=== PATIENT | male | born 1945 | race Caucasian/White ===

== ENCOUNTER 2020-06-16 12:22 | Emergency (ER) | payer MEDICARE, SELFPAY ==
[2020-06-16 12:29] VITALS: BP 146/77; PULSE 71; RESP 16; TEMP 36.3; O2SAT 100
--- NOTE | 2020-06-16 12:57 | ED.EAR ---
HPI - Ear Problem General Chief complaint: Skin/Abscess/Foreign Body Stated complaint: pos lice/scabies Source: patient and RN notes reviewed Limitations: no limitations History of Present Illness HPI Narrative: The patient, previously mostly healthy with h/o mood disorder, presents with skin eruption and pruritus. Patient states he has about 1/2-week history of itchy the scalp-- especially at his ears bilaterally. 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 He's concerned he might have lice, but he first had bilateral ear itching. Symptoms are mild, worse with scratching. No visible nits, fever, discharge/streaking, prior rashes/other eczema Related Data Allergies Allergy/AdvReac Type Severity Reaction Status Date / Time No Known Allergies Allergy Verified 06/16/20 12:37 Review of Systems Review of Systems: Narrative: The patient has been informed that they may have pre-hypertension or Hypertension based on a BP reading in the department. I recommend that the patient call the primary care provider listed on their discharge instructions or a physician of their choice this week to arrange follow up for further evaluation of possible pre-hypertension or Hypertension General/Constitutional: No weight loss,fever Eyes: N0: Redness,discharge Ears/Nose/Throat: No: Epistaxis,ear discharge Respiratory: Denies: Hemoptysis Gastrointestinal: No Vomiting, Bleeding-rectal Skin: No Lumps, REPORTS eruption Neurologic: No Focal Weakness,Sz Hematologic: Denies: Petechiae/Purpura Psychiatric: No: Suicida ideationl All Other Systems: Reviewed and Negative PMF Past Medical History Medical History (Updated 06/19/20 @ 11:38 by David Emery MD) Hearing difficulty Lymphoma (~07/02/18) Polio (~1950) Primary squamous cell carcinoma of throat Wears glasses Social History Social History Smoking status: Former smoker Tobacco type: cigarettes Alcohol intake: never Comments At time of signature, agree with nursing past medical, surgical, social and family history. There is no relevant family history pertinent to the presenting complaint Exam Narrative: Exam Narrative: Appearance: Well-nourished Normocephalic, Conjunctiva clear Ear: [place]/slightly inflamed apices external ears Nose: Normal nose, Nare clear Mouth/Throat: Normal appearing Neck Exam: Supple Respiratory: Airway patent, No respiratory distress Musculoskeletal: Moves all extremities, Non tender Skin: Warm, Dry, Balding no nits seen [see above, also] Neurological: A&O x3, Normal affect Course Vital Signs Vital signs: Vital Signs Temperature 97.3 F L 06/16/20 12:29 Pulse Rate 71 06/16/20 12:29 Respiratory Rate 16 06/16/20 12:29 Blood Pressure 146/77 H 06/16/20 12:29 Pulse Oximetry 100 06/16/20 12:29 Temperature 97.3 F L 06/16/20 12:29 Pulse Rate 71 06/16/20 12:29 Respiratory Rate 16 06/16/20 12:29 Blood Pressure 146/77 H 06/16/20 12:29 Pulse Oximetry 100 06/16/20 12:29 Medical Decision Making Vital Signs Vital Signs: Vital Signs Temperature 97.3 F L 06/16/20 12:29 Pulse Rate 71 06/16/20 12:29 Respiratory Rate 16 06/16/20 12:29 Blood Pressure 146/77 H 06/16/20 12:29 Pulse Oximetry 100 06/16/20 12:29 Temperature 97.3 F L 06/16/20 12:29 Pulse Rate 71 06/16/20 12:29 Respiratory Rate 16 06/16/20 12:29 Blood Pressure 146/77 H 06/16/20 12:29 Pulse Oximetry 100 06/16/20 12:29 Discharge Plan Discharge Clinical Impression: Dermatitis of external ear, Pruritic condition Patient Disposition: Home, Self-Care Condition: Stable Additional Instructions: You may also use OTC preparations like S[place] shampoo on your ears, and 1% hydrocortisone cream Prescriptions: New RID Lice Killing 0.33-4 % shampoo 1 applic TOPICAL ONCE Qty: 59
== END 2020-06-16 13:08 | disposition home or self-care (01) ==
PROVIDERS: Emergency Provider Emergency Medicine; PCP Family Medicine
DX: L30.9 Dermatitis, unspecified (principal); L29.9 Pruritus, unspecified; Z87.891 Personal history of nicotine dependence; Z85.858 Personal history of malignant neoplasm of other endocrine glands; Z92.21 Personal history of antineoplastic chemotherapy
CPT/HCPCS: 99213; G0463

== ENCOUNTER 2021-12-27 15:14 | Emergency (ER) | payer MEDICARE, SELFPAY ==
[2021-12-27 15:25] VITALS: BP 175/93; PULSE 88; RESP 16; TEMP 36.7; O2SAT 99
--- NOTE | 2021-12-27 15:45 | ED.WOUNDLAC ---
HPI - Wound/Laceration General Chief Complaint: Wound/Laceration Stated Complaint: L THUMB LACERATION Time Seen by Provider: 12/27/21 15:40 Source: patient, RN notes reviewed and old records reviewed Mode of arrival: ambulatory Limitations: no limitations History of Present Illness HPI narrative: 76 year old male who presents to [facility] with complaints of laceration to the outer aspect of left dorsal thumb which occurred at home when he was using a boxing instructor to cut a box. Patient has some active bleeding noted at site of laceration, he has applied a pressure dressing to site. Patient has no damage to nail bed or any foreign body present. Patient states that his Tetanus shot is not up to date thinks it has been between 9 to 10 years since he had his last tetanus. 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 Onset (ago): hour(s) (1) Location: other (left thumb laceration) Place: home Patient tetanus UTD: No Context: accidental Treatments prior to arrival: bandage Related Data Allergies Allergy/AdvReac Type Severity Reaction Status Date / Time No Known Allergies Allergy Verified 09/09/21 14:01 Review of Systems Review of Systems: CONSTITUTIONAL: Denies fever, chills, or sweats. EYES: Denies visual changes, redness, or discharge. ENT: Denies rhinorrhea, congestion, sore throat, or otalgia. CARDIOVASCULAR: Denies chest pain, palpitations, or edema. RESPIRATORY: Denies cough or dyspnea. GASTROINTESTINAL: Denies abdominal pain, nausea, vomiting, or diarrhea. GENITOURINARY: Denies dysuria or hematuria. SKIN: Denies rash or itching, positive for laceration to the outer dorsal area of left thumb MUSCULOSKELETAL: Denies back pain, joint pain, or myalgia. NEUROLOGIC: Denies headache, numbness, or weakness. PSYCHIATRIC: positive for anxiety or depression. All systems reviewed & are unremarkable except as noted in HPI and below PMFSH Past Medical History Medical History (Updated 12/27/21 @ 16:58 by Imelda Ardon NP) Hearing difficulty Lymphoma (~07/02/18) Polio (~1950) Primary squamous cell carcinoma of throat Wears glasses Surgical History Surgical History (Updated 12/27/21 @ 16:59 by Imelda Ardon NP) Hx of tonsillectomy left neck lymph node dissection Family History Family History Father Family history of mental disorder Sibling Hypertension Mother Family history of cardiovascular disease Social History Social History (Updated 12/27/21 @ 16:19 by Imelda Ardon NP) Smoking status: Former smoker Tobacco type: cigarettes Additional smoking assessment comments: quit 25 years ago Alcohol intake: never Substance use type: does not use Gender identity (if verbalized by the patient): Male Comments At time of signature, agree with nursing past medical, surgical, social and family history. There is no relevant family history pertinent to the presenting complaint Exam Narrative: GENERAL: Well-appearing, well-nourished, and in no acute distress. HEAD: Normocephalic, atraumatic. EYES: PERRLA and EOMI. ENT: Nares clear, no rhinorrhea or epistaxis. Mucous membranes moist.TM's normal with good light reflex throat pink with no lesions or exudates no tonsils present. NECK: Supple. no lymphadenopathy CHEST: Clear to auscultation. No respiratory distress. HEART: Regular rate and rhythm. No murmur heard. Normal peripheral pulses. ABDOMEN: Soft, nontender, nondistended, normal active bowel sounds. EXTREMITIES: Normal range of motion. No edema. SKIN: Warm, dry, no rash. 2.5 cm laceration to the outer aspect of left thumb requiring suture repair NEURO: No focal deficits. Alert and oriented x3. Course Course Level of Care: Express Care Visit Vital Signs Vital signs: Vital Signs Temperature 36.7 C 12/27/21 15:25 Pulse Rate 88 12/27/21 15:25 Respiratory Rate 16 12/27/21 15:25 Blood Pressure 175/93 H 12/27/21
[2021-12-27] MEDS: TETANUS,DIPHTHERIA,AC PERTUSSIS ADULT (0.5 ML) BOOSTRIX IM (16:19)
== END 2021-12-27 16:29 | disposition home or self-care (01) ==
PROVIDERS: Emergency Provider Registered Nurse; PCP Family Medicine
DX: S61.012A Laceration without foreign body of left thumb without damage to nail, initial encounter (principal); W26.8XXA Contact with other sharp object(s), not elsewhere classified, initial encounter; Z23 Encounter for immunization; Z85.21 Personal history of malignant neoplasm of larynx; Z85.72 Personal history of non-Hodgkin lymphomas
CPT/HCPCS: 12001; 90471; 90715; 99213; G0463

== ENCOUNTER 2023-01-22 00:43 | Day surgery (SDC) | payer MEDICARE, SELFPAY ==
--- NOTE | 2023-01-16 14:59 | PC.NURSE ---
Report to the Outpatient Waiting Room, entrance under the green pavilion located off [facility], at time __1100 on date _01/22/23 . Planned Procedure Time: ___1200 . Time changes happen often and if your time is changed the preop area will call you the afternoon before. - You and your visitor will be asked to self-screen and do not enter if you have any COVID symptoms. - A mask is optional within the hospital at this time. Patients may have clear liquids (water, carbonated beverages, clear teas, apple juice) until 3 hours prior to surgery with a maximum of 20 ounces. - No food from midnight until time of surgery - Infants may have breast milk until 4 hours before surgery, infant formula 6 hours prior to surgery. - Children will be allowed to drink immediately following surgery. If applicable, please bring a bottle or sippy cup to assist with drinking. Juice, water, soda, and popsicles are readily available. For infants on formula, please bring formula the day of surgery. Pacifiers are allowed. LIGHT BREAKFAST Take the following medications with a SIP of water the morning of surgery: ___ALL ROUTINE MORNING MEDS DO NOT STOP ANY OF YOUR OTHER PRESCRIPTION MEDICATIONS PRIOR TO SURGERY ?EXCEPT THE FOLLOWING Medications to discontinue per physician ASPIRIN 3 DAYS PRE OP PER DR LEVY. LAST DOSE 01/18/23 Please no make-up, nail romansh, hairspray, perfume, deodorant, or body powder the day of surgery. No jewelry (including any body piercings) or valuables the day of surgery, leave them at home. Please take a shower or bath the night before, or the morning of, surgery with an antibacterial soap. Wear comfortable, loose fitting clothing. Children are encouraged to wear pajamas. - Jewelry must be removed prior to entering the operating room. Rings and piercings that are not removed may be cut off. - The hospital will not accept responsibility for valuables. - Please leave all valuables, including medications, at home the day of surgery. If you are going home after surgery, a licensed grab driver must drive you home. - NO public transportation without another adult if you receive anesthesia. - We recommend that an adult stay with you for 24 hours following discharge. - We also recommend that you do not drive, make important decision, drink alcoholic beverages, or take any drugs that were not prescribed by your health care provider for at least 24 hours after your discharge time. For Pediatric surgeries, we recommend two adults accompany the child home. Follow any additional instructions given to you from your surgeon. If you or anyone in your household have experienced Covid symptoms in the past week, please notify your surgeon or the nurse liaison at the phone number below for possible testing. Telephone instructions given to ___PATIENT and asked if any additional questions and then verbalized understanding. Patient advised to call surgeon office or pre surgery nurse liaison [phone] if any additional questions.
[2023-01-16 15:01] VITALS: BMI 25.8
[2023-01-22] VITALS (12 sets, daily range): BP systolic 142–208; BP diastolic 77–96; PULSE 70–80; RESP 16–18; TEMP 36.7; O2SAT 98–100
--- NOTE | 2023-01-22 07:12 | WPDHPUPDATE1 ---
History and Physical Update Update Date/Time: 01/22/23 07:12 History and Physical has been reviewed, including an updated exam of the patient. There are NO changes in the patient's condition. Risks, benefits, and alternatives have been discussed and questions answered. Patient agrees to proceed with procedure.
--- NOTE | 2023-01-22 11:26 | SUR.PREOP ---
PATIENT UPDATED ON SURGERY DELAY
[2023-01-22] MEDS: LIDO 1%/EPINEPHRINE 1:100,000 20 ML VIAL 4 ML INFILTRATE (14:18)
--- NOTE | 2023-01-22 19:26 | W.PM.PROC2 ---
Procedure Note - Detailed Date of Procedure 01/22/23 Pre-op Diagnosis neoplasm unspec behavior right ear Post-op Diagnosis Other (Basal cell carcinoma) Procedure Performed excision of basal cell carcinoma of the right ear with frozen section and complex repair 5 cm Surgeon Bran Avina MD Anesthesia Local Description of Procedure the site was marked on the patient's ear in the holding area with his consent. We discussed the donor site if needed would be most likely on his upper neck. He was taken to the operating room placed supine on the operating table. His entire face and right neck were prepped and draped in the usual fashion. A marking was placed for the proposed incision. This area was widely infiltrated with 1% lidocaine with epinephrine. The excision was carried out without initial disruption of the cartilage. The most superior aspect was marked with a suture for 12 o'clock. The specimen sent to pathology. The pathologist reported that the tumor was a basal cell carcinoma and that all margins were free. It appeared that a full-thickness skin graft would produce an unnecessary cosmetic deformity. I elected to reconstruct this by converting our surgical wound into a wedge resection. This was incised, skin was elevated as needed away from the cartilage edges. Cartilage edges were brought together and sutured with through and through perichondrial stitches. The skin was closed with interrupted 5 0 nylon sutures. The ear was dressed with bacitracin ointment and a Scarlet ear cup. Patient tolerated this procedure very nicely Estimated Blood Loss 5 Packing No Pathology Yes Complications No immediate complications Condition Stable Disposition Same day
== END 2023-01-22 16:00 | disposition home or self-care (01) ==
PROVIDERS: PCP Family Medicine; Visit Provider Plastic Surgery
PROC: (CPT 11646; principal; 2023-01-22 12:00)
DX: C44.212 Basal cell carcinoma of skin of right ear and external auricular canal (principal)
CPT/HCPCS: 11646; 13152; 88305; 88331; A9270

== ENCOUNTER 2023-04-06 09:21 | Outpatient (CLI) | payer MEDICARE, OTHER, SELFPAY ==
[2023-04-06 12:41] LABS: Basophils Percent Auto 0.6 % (0.2-1.2); Eosinophils Absolute Auto 0.3 K/mm3 (0-0.3); Eosinophils Percent Auto 3.8 % (0-4.4); Hematocrit 39.4 % (42.0-52.0); Hemoglobin 13.1 g/dL (14.0-18.0); Immature Granulocyte Absolute 0.02 K/mm3 (0.00-0.031); Immature Granulocyte Percent A 0.3 % (0-0.5); Lymphocytes Absolute Auto 0.84 K/mm3 (0.9-3.2); Lymphocytes Percent Auto 11.9 % (18.3-44.2); Mean Corpuscular HGB Conc 33.2 g/dl (32-36); Mean Corpuscular Hemoglobin 31.4 pg (26-34); Mean Corpuscular Volume 94.5 fl (80-100); Monocytes Absolute Auto 0.8 K/mm3 (0.1-0.6); Monocytes Percent Auto 11.1 % (2.6-8.5); Neutrophils Absolute Auto 5.1 K/mm3 (1.3-6.7); Neutrophils Percent Auto 72.3 % (45.5-73.1); Platelet Count Result 262 k/mm3 (150-375); Red Blood Count 4.17 M/mm3 (4.6-6.20); Red Cell Distribution Width 12.1 % (11.5-14.5); White Blood Count 7.1 K/mm3 (4.5-10.0)
[2023-04-06 12:47] LABS: Anion Gap -1 mmol/L (8-16); Blood Urea Nitrogen 17 mg/dL (9-20); Calcium 9.3 mg/dL (8.4-10.2); Carbon Dioxide 35 mmol/L (22-30); Chloride 97 mmol/L (98-107); Estimated Glomerular Filt Rate > 60; Glucose 105 mg/dL (65-110); Potassium 4.5 mmol/L (3.4-5.0); Sodium 131 mmol/L (137-145)
[2023-04-06 13:42] LABS: Hepatitis C Virus Antibody Negative (Negative)
== END 2023-04-06 09:22 | disposition home or self-care (01) ==
LOC: ANHGOSHLAB 09:22
PROVIDERS: PCP Family Medicine; Visit Provider Nurse Practitioner Family
DX: F43.23 Adjustment disorder with mixed anxiety and depressed mood (principal); R03.0 Elevated blood-pressure reading, without diagnosis of hypertension; Z11.59 Encounter for screening for other viral diseases; R61 Generalized hyperhidrosis
CPT/HCPCS: 36415; 80048; 84443; 85025; 86803

== ENCOUNTER 2023-04-07 09:41 | Outpatient (CLI) | payer MEDICARE, OTHER, SELFPAY ==
--- NOTE | ~2023-04-07 | XR_ITS ---
Lumbosacral Spine: AP, oblique, and lateral views Clinical History: Pain Findings: The normal lordotic curve is maintained. No fracture identified. Minimal grade 1 retrolisth esis of L3 over L4 present. Minimal grade 1 retrolisthesis of L4 over L5 present. There is severe deg enerative disc narrowing at L3-L4 and L4-L5. There is mild to moderate facet arthropathy at L4-L5. Th e sacroiliac joints are normally outlined. Impression: Moderate degenerative spondylosis of the lower lumbar spine, as detailed above. Minimal grade 1 anterolisthesis of L3 over L4. Minimal grade 1 retrolisthesis of L4 over L5. Reviewed, dictated and finalized at location . Impression: Moderate degenerative spondylosis of the lower lumbar spine, as detailed above. Minimal grade 1 anterolisthesis of L3 over L4. Minimal grade 1 retrolisthesis of L4 over L5.
== END 2023-04-07 09:42 | disposition home or self-care (01) ==
PROVIDERS: PCP Family Medicine; Visit Provider Family Medicine
DX: M54.50 Low back pain, unspecified (principal); M43.06 Spondylolysis, lumbar region
CPT/HCPCS: 72110